=== PATIENT | male | born 1970 | race Caucasian/White ===

== ENCOUNTER 2018-04-15 16:45 | Emergency (ER) | payer OTHER ==
--- NOTE | 2018-04-15 16:59 | RAD ---
LEFT ANKLE: 04/15/18 Three views. HISTORY: Injury to ankle with pain. No significant soft tissue swelling. No evidence of fracture. IMPRESSION: No acute findings. POS: C
== END 2018-04-15 17:52 | disposition home or self-care (01) ==
LOC: ERS 16:45
DX: M25.572 Pain in left ankle and joints of left foot (principal); X50.1XXA Overexertion from prolonged static or awkward postures, initial encounter
CPT/HCPCS: 29515

== ENCOUNTER 2018-05-09 07:04 | Day surgery (SDC) | payer OTHER ==
[2018-05-06 11:50] VITALS: BMI 23.1
[2018-05-09] MEDS ORDERED: Midazolam HCl 2 mg/2 ml Vial ONE (07:57)
[2018-05-09] MEDS ORDERED: Fentanyl 100 MCG/2 ML VIAL ONE ×2 (07:57→09:37)
--- NOTE | 2018-05-09 08:17 | HP ---
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 He was seen in the emergency room and treated with a walking boot and subsequently referred to my office. He has had no previous ankle problems. PAST HISTORY: The patient is otherwise in good health, takes no routine medications, and has no known allergies. FAMILY HISTORY: Otherwise unremarkable. SOCIAL HISTORY: Otherwise unremarkable. REVIEW OF SYSTEMS: Otherwise unremarkable. PHYSICAL EXAMINATION: GENERAL: Reveals a healthy male. HEENT: Unremarkable. NECK: Supple. CHEST: Clear. HEART: Regular rate and rhythm. ABDOMEN: Soft and nontender. RECTAL AND GENITAL: Deferred. EXTREMITIES: Pertinent findings related to the left ankle. There is swelling and ecchymosis along the medial, lateral and posterior aspects of the ankle. There is decreased range of motion secondary to pain and immobilization. There is tenderness over the Achilles tendon several centimeters proximal to the incision with a palpable defect. There is weakness with plantar flexion. Butler testing reveals lack of integrity of the Achilles tendon. There is decreased plantar flexion strength. Otherwise, neurovascular exam is intact. DIAGNOSTIC DATA: X-rays of the ankle reveal no fractures or soft tissue swelling. IMPRESSION: Ruptured left Achilles tendon. PLAN: Surgical repair. The nature of the surgery, length, recovery, and potential complications such as infection, loss of motion, delayed wound healing, neurovascular injury, thromboembolic phenomenon, persistent weakness, rupture with repair, need for additional treatment and repeat surgery had been discussed in detail with the patient and his . Job ID: [id number]
--- NOTE | 2018-05-09 12:24 | OP ---
DATE OF PROCEDURE: 05/09/2018 TUFTING MACHINE OPERATOR: Norma Godfrey PA-C ANESTHESIA: General plus regional nerve block. PREOPERATIVE DIAGNOSIS: Ruptured left Achilles tendon. POSTOPERATIVE DIAGNOSIS: Ruptured left Achilles tendon. PROCEDURE PERFORMED: Repair of left Achilles tendon with supplemental plantaris tendon graft. OPERATIVE FINDINGS: Complete rupture of the Achilles tendon with Marfan proximally and distally. The plantaris tendon was intact. The tendon was not markedly retracted and I was able to effect a satisfactory repair with minimal plantar flexion necessary without putting excessive tension on the repair. DESCRIPTION OF PROCEDURE: After satisfactory anesthesia was induced in supine position, the patient was placed in the prone position. All bony prominences were thoroughly padded. The left leg was then prepped and draped in routine sterile fashion. The left leg was elevated and exsanguinated with an Esmarch bandage and the tourniquet was inflated to 300 mmHg. A longitudinal incision was made over the Achilles tendon, carried down through the subcutaneous tissues and bleeding points controlled with Bovie cautery. Immediately upon incising the deep fascia and paratenon, a large hematoma was encountered and there was complete rupture of the Achilles tendons. Using sharp and blunt dissection, this tear was identified. Care was taken to avoid excessive tension on the skin to create full-thickness skin flaps. The tear was defined. The ends of the tendons were freshened with sharp dissection. The tendon was then repaired with two modified Franco sutures of #1 PDS and multiple sutures of #1 Vicryl. This appeared to give satisfactory repair and I could put the ankle at neutral to perhaps 5 degrees of plantar flexion without excessive tension on the repair to supplement the repair. The plantaris tendon was dissected free and divided proximally. The distal attachment was left intact. This was then weaved through the proximal Achilles tendon tear and distal gastrocnemius muscle and tagged on the ends with #1 Vicryl and then sutured back to the distal stump of the Achilles tendon with #1 Vicryl. This appeared to give good stable repair. The wound was thoroughly irrigated. The paratenon was closed with interrupted #1 Vicryl. The skin was closed with a staple gun. A sterile bulky compressive dressing was applied. The tourniquet deflated after 40 minutes. The foot promptly pinked up and the patient was immobilized in a posterior plaster splint with medial and lateral stirrups with the foot in neutral to very slight plantar flexion. He was then awakened, taken to the recovery room in stable condition. There were no apparent intraoperative complications. The estimated blood loss was negligible. The patient will be discharged home in satisfactory condition, and started on ice, elevation, and given written cast care instructions. He was instructed use of crutches, nonweightbearing on the left leg. He was given prescription for Rosebud 10 for pain, 60 tablets. He will be rechecked in my office in approximately 2 weeks or sooner if there are any problems prior to that time. Job ID: [id number]
[2018-05-09] MEDS ORDERED: Bupivacaine HCl 0.5%/Epinephrine 1:200,000/PF 30 ml Vial ONE (16:50)
[2018-05-09] MEDS ORDERED: Ketorolac Tromethamine 30 MG/ML VIAL ONE (17:06)
[2018-05-09] MEDS ORDERED: Glycopyrrolate 0.2 MG/ML 5 ML SYRINGE ONE (17:06)
[2018-05-09] MEDS ORDERED: Lidocaine 1% PF 5 ML VIAL ONE (17:06)
[2018-05-09] MEDS ORDERED: Ondansetron PF 4 MG/2 ML Vial ONE (17:06)
[2018-05-09] MEDS ORDERED: PROPOFOL 200 MG/20 ML VIAL ONE (17:06)
[2018-05-09] MEDS ORDERED: Rocuronium Bromide 10 MG/ML (10ML VIAL) ONE (17:06)
--- NOTE | 2018-05-09 20:33 | EKG ---
Test Reason : PREOP Blood Pressure : / mmHG Vent. Rate : 082 BPM Atrial Rate : 082 BPM P-R Int : 176 ms QRS Dur : 104 ms QT Int : 378 ms P-R-T Axes : 045 017 020 degrees QTc Int : 441 ms Normal sinus rhythm Incomplete right bundle branch block Borderline ECG No previous ECGs available Confirmed by DR. Isaac VELOZ ([id number]) on 05/09/2018 8:32:51 PM Referred By: ANUEL Confirmed By:DR. Isaac VELOZ
== END 2018-05-09 12:31 | disposition home or self-care (01) ==
LOC: SDC 07:04
PROVIDERS: ATTEND Orthopaedic Surgery
PROC: 0LUP07Z Supplement Left Lower Leg Tendon with Autologous Tissue Substitute, Open Approach (ICD-10-PCS; principal; 2018-05-09)
DX: S86.012A Strain of left Achilles tendon, initial encounter (principal); X50.9XXA Other and unspecified overexertion or strenuous movements or postures, initial encounter
CPT/HCPCS: 93005; 93010; J0670; J1885; J2001; J2250; J2405; J2704; J3010